=== PATIENT | male | born 1970 | race Caucasian/White ===

== ENCOUNTER 2017-03-15 20:24 | Emergency (ER) | payer OTHER ==
[~2017-03-15] VITALS: Ht 188 cm; Wt 79.4 kg
[2017-03-15] MEDS ORDERED: BROMFED DM COU118 ML PO (21:54)
[2017-03-15 21:55] VITALS: BP 122/85
--- NOTE | 2017-03-15 21:55 | [facility] Report ---
History of Present Issue Date/Time Seen by Provider 03/15/17 4252 Visit Reason Pt arrived:Walked Presenting Problem:PT STATES SORE THROAT, HEADACHE, N/V THAT BEGAN TODAY Location if Accident: Onset of symptoms date/time:03/15/17/ or onset unknown for:MEDICAL HX UNKNOWN Have you (or family members/close friends) recently traveled outside the [place]? N If Yes, where/when: Have you had exposure to infectious disease within the past month? TB? Other? Specify: c/o sore throat primarily. Started w/ rhinorrhea, nasal congestion, PND 2-3 days ago. No appetite last night. Work sent pt home today because he vomited once this morning. Pt needs note to excuse absense and to return to work. Contributes vomiting to PND. Several people at home w/ similiar symptoms. Hasn't taken or tried anything for symptoms. No fever, aches, chills. Source patient Exam Limitations no limitations ALLERGIES Coded Allergies: No Known Allergies (01/27/16) History Medical History General CAD? No Angina: No MO: No Hypertension? No Hyperlipidemia? No CHF? No DVT? No PE? No COPD? No Asthma? No Anemia? No GERD? No Gastric ulcers? No GI Bleed? No Hernia? No Thyroid Problems? No Hypothyroidism? No CVA? No Seizures? No Diabetes? No Insulin Dependent: No Insulin Pump: No Home FSBS? No Renal Insuffiency? No UTI? No Stones? No BPH? No GB Disease: No Nephritic Syndrome? No Asplenia? No Hepatitis? No Sickle Cell Disease? No Arthritis? No Migraines? No Cataracts? No Glaucoma? No MRSA? No HIV? No TB? No Anxiety? No Depression? No Cancer? No More? No Immunization HX DT/Tetanus Unknown Surgical Hx Previous Surgery?Y ELBOW TONSILS Social History Smoking Hx Smoker: Current Every Day Smoker Tobacco: Yes Type Cigarettes Alcohol Alcohol: Yes Review of Systems All Other Systems Reviewed and Negative Constitutional see HPI, chills, denies fever, denies malaise Eyes denies drainage ENT see HPI. denies: ear discharge, throat swelling. Respiratory cough (nonprod, "from drainage"), denies shortness of breath, denies wheezing Cardiovascular denies chest pain Gastrointestinal denies abdominal pain, denies diarrhea, denies nausea Skin denies rash Psychiatric/Neurological headache (mild, intermittent) Physical Exam Vital Signs Vital Signs Date Time Temp Pulse Resp B/P Pulse O2 O2 Flow FiO2 Ox Delivery Rate 03/15 2155 98.1 87 18 122/85 96 03/15 2031 98.1 87 18 122/85 96 General Appearance no apparent distress, unkept appearance Eye Exam - bilateral eye normal exam Ear, Nose, Throat normal ENT inspection (x/ mild nasal congestion) Neck non-tender, supple Respiratory Status No: respiratory distress, use of accessory muscles, productive cough, non productive cough. Lung Sounds anterior: lungs clear. posterior: lungs clear. bilateral: lungs clear. Cardiovascular regular rate/rhythm, no peripheral edema, no murmur Neurologic alert, oriented x 3 Mental status normal mood/affect Skin normal color, warm/dry Lymphatic no adenopathy Medical Decision Making LABS/Meds/Orders Pt receiving controlled substance in ED? No Results/Orders Laboratory Tests 03/15/17 2030: Group A Strep Screen NOT DETECTED Orders Procedure Date/time Status [facility] STREP SCREEN 03/15 2031 Complete Departure Departure Time of Disposition 2151 Disposition DC Home or Self Care(routine) Clinical Impression Primary Impression: Upper respiratory virus Condition STABLE Referrals NO REFERRAL (Family) Follow up with primary care IMMEDIATELY for new or worsening symptoms OR no noticeable improvement over the next 48-72 hours. 911 for difficulty breathing or swallowing. Patient Instructions DI for Viral Upper Respiratory Infection -- Adult Additional Instructions * No sign of bacterial infection. Likely viral. Virus can take 7-14 days to run their course * Monitor Temp. Tylenol every 4 hours as needed and/or ibuprofen every 6 hours as needed (as long as your primary care doctor has told you that it is ok to take both) for fever/aches/pain. ER if fever no less than 101 despite tylenol and ibuprofen * Encourage fluids, water, gatorade, powerade, pedialyte if /toddler/child * warm salt water gargles * warm fluids * sore throat lozenges * sleep elevated * humidifier/vaporizer * Bromfed may cause drowsiness. Know how it effects you (or your child) before driving, caring for small children, or sending your child to school. No other antihistamines/allergy medications while taking bromfed. * * Your throat swab was sent for culture. Those results are typically sent to your primary care. Be sure to follow up in 2-3 days if no improvement so they can review those results and treat if necessary. If you don't have primary care, I recommend you get one but in the mean time, you will have to return to a walk in clinic. Discharge Counseling Counseled pt/family regarding diagnosis, test results, medications/RX, home care, follow up needs Prescriptions Current Visit Scripts D-METHORPHAN HB/P-EPD HCL/BPM (Bromfed Dm Cough Syrup) 10 ML PO QIDP PRN cough #240 ML at 1984
== END 2017-03-15 21:57 | disposition home or self-care (01) ==
LOC: UTC 20:24
DX: J06.9 Acute upper respiratory infection, unspecified (principal); Z72.0 Tobacco use